=== PATIENT | female | born 1995 | race Caucasian/White ===

== ENCOUNTER 2017-11-24 17:09 | Emergency (ER) | payer OTHER ==
[~2017-11-24] VITALS: Ht 172.7 cm; Wt 66.5 kg
[2017-11-24 17:19] VITALS: Ht 172.7 cm; Wt 66.5 kg
[2017-11-24 19:19] VITALS: TEMP 36.5
[2017-11-24] MEDS ORDERED: CEFTRIAXONE SOD 350MG/ML 1 GM VIAL IM STA (21:35)
[2017-11-24] MEDS ORDERED: DOXY100C2 PO (21:37)
[2017-11-24] MEDS ORDERED: DOXYCYCLINE HYCLATE 100 MG CAP PO ONE (21:45)
[2017-11-24 21:56] VITALS: BP 111/72; PULSE 78; O2SAT 99
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
== END 2017-11-24 22:05 | disposition home or self-care (01) ==
LOC: C.EDB 17:12
DX: T76.21XA Adult sexual abuse, suspected, initial encounter (principal); F17.200 Nicotine dependence, unspecified, uncomplicated